=== PATIENT | female | born 1950 | race Caucasian/White ===

== ENCOUNTER → 2019-12-04 | Outpatient (CLI) | payer MEDICARE ==
--- NOTE | 2019-12-04 20:35 | MR ---
EXAMINATION TYPE: MR lumbar spine wo con DATE OF EXAM: 12/04/2019 COMPARISON: None HISTORY: Lumbago with sciatica, radiculopathy CONTRAST: 0 mL intravenous Gadavist. TECHNIQUE: Multiplanar, multisequence images of the lumbar spine were acquired. FINDINGS: L5-S1: Mild disc bulge is present with anterior thecal sac contact. No AP spinal canal stenosis prese nt. Moderate facet hypertrophy is present without significant posterior lateral thecal sac compressio n. There is moderate right and mild to moderate left foraminal narrowing. L4-L5: There is a grade 1 spondylolisthesis. Disc uncovering has moderate anterior thecal sac flatten ing. Facet hypertrophy has posterior lateral thecal sac contact. No AP spinal canal stenosis is prese nt. Severe bilateral foraminal stenosis is present. L3-L4: No significant disc bulge or disc herniation. No spinal canal stenosis. Mild foraminal narrow ing from moderate to severe facet hypertrophy is present.. L2-L3: No significant disc bulge or disc herniation. No spinal canal stenosis. No foraminal stenosi s. L1-L2: No significant disc bulge or disc herniation. No spinal canal stenosis. No foraminal stenosi s. T12-L1: No significant disc bulge or disc herniation. No spinal canal stenosis. No foraminal stenos is. IMPRESSION: 1. Grade 1 spondylolisthesis of L4 anterior and L5. 2. Disc uncovering L4-5 with mild to moderate anterior thecal sac flattening. 3. Severe foraminal stenosis bilaterally L4-5 due to facet hypertrophy with milder foraminal narrowin g discussed above from facet hypertrophy is at L3-4 and L5-S1
== END | disposition home or self-care (01) ==
LOC: RADMRIMAIN 11:11
PROVIDERS: ATTEND Physician Assistant
DX: M48.061 Spinal stenosis, lumbar region without neurogenic claudication (principal); M48.07 Spinal stenosis, lumbosacral region; M43.16 Spondylolisthesis, lumbar region
CPT/HCPCS: 72148

== ENCOUNTER → 2021-09-03 | Outpatient (CLI) | payer MEDICARE ==
--- NOTE | 2021-09-03 14:46 | BD ---
EXAMINATION TYPE: Axial Bone Density DATE OF EXAM: 09/03/2021 COMPARISON: NONE CLINICAL HISTORY: Height: 5 FT 2 IN Weight: 151 FRAX RISK QUESTIONS: Alcohol (3 or more units per day): NO Family History (Parent hip fracture): NO Glucocorticoids (More than 3mos): NO (Ex: prednisone, prednisolone, methylprednisolone, dexamethasone, and hydrocortisone). History of Fracture in Adulthood: NO Secondary Osteoporosis: 1. Type 1 Diabetes: NO 2. Hyperthyroidism: NO 3. Menopause before 45: NO 4. Malnutrition: NO 5. Chronic liver disease: NO Rheumatoid Arthritis: NO Current Tobacco Use: NO RISK FACTORS HISTORY OF: Surgery to Spine/Hip(right/left)/Wrist (right/left): NO Family History of Osteoporosis: NO Active: YES Diet low in dairy products/other sources of calcium: NO Postmenopausal woman: YES Take estrogen and/or progesterone medications: NO Lost more than 2 inches in height since high school: NO Poor Health: GOOD Hyperparathyroidism: NO Adrenal Insufficiency: NO MEDICATIONS: Additional Medications: VIT D3, BLOOD PRESSURE MEDS, MOBIC, CHOLESTEROL MEDS Additional History: EXAM MEASUREMENTS: Bone mineral densitometry was performed using the [employer] System. Bone mineral density as measured about the Lumbar spine is: ----- L1-L4(G/cm2): 1.041 T Score Values are as follows: ----- L2: -1.3 ----- L3: -2.0 ----- L4: -0.2 ----- L1-L4: -1.2 PREV DONE ELSEWHERE Bone mineral density about the R hip (g/cm2): 1.116 Bone mineral density about the L hip (g/cm2): 0.914 T Score values are as follows: -----R Neck: 0.6 -----L Neck: -0.9 -----R Total: -0.3 -----L Total: -0.8 PREV DONE ELSEWHERE IMPRESSION: Osteopenia lumbar spine NOTE: T-SCORE=SD OF THE YOUNG ADULT MEAN.
--- NOTE | 2021-09-04 12:03 | MM ---
Reason for exam: screening (asymptomatic). Last mammogram was performed 3 years and 1 month ago. History: Patient is postmenopausal. Took hormonal contraceptives for 2 years. Physical Findings: A clinical breast exam by your physician is recommended on an annual basis and results should be correlated with mammographic findings. MG 3D Screening Mammo W/Cad Bilateral CC and MLO view(s) were taken. Prior study comparison: July 22, 2018, mammogram, performed at [facility]. September 15, 2015, mammogram, performed at [facility]. There are scattered fibroglandular densities. There is no discrete abnormality. ASSESSMENT: Negative, BI-RAD 1 RECOMMENDATION: Routine screening mammogram in 1 year.
== END | disposition home or self-care (01) ==
LOC: RADBDWWP 08:24
PROVIDERS: ATTEND Family Medicine
DX: M85.88 Other specified disorders of bone density and structure, other site (principal)
CPT/HCPCS: 77063; 77067; 77080

== ENCOUNTER 2022-01-23 09:56 | Day surgery (SDC) | payer MEDICARE ==
[2022-01-21 09:45] VITALS: BMI 26.5
[2022-01-23 10:37] VITALS: TEMP 96.8
[2022-01-23] MEDS: LACTATED RINGERS 1,000 ML IV SCH ×2 (10:50→11:21)
[2022-01-23] MEDS ORDERED: PROPOFOL 10 MG/ML 20 ML VIAL IV ONE (11:23)
--- NOTE | 2022-01-23 11:41 | P.PCN ---
Date of Procedure: 01/23/22 Procedure(s) Performed: BRIEF HISTORY: Patient is a 71-year-old pleasant female scheduled for an elective colonoscopy as a part of screening for colorectal neoplasia and family history of colon cancer diagnosed in her mother at age 70. PROCEDURE PERFORMED: Colonoscopy. PREOPERATIVE DIAGNOSIS: Screening for colon Cancer and family history of colon cancer. IV sedation per Anesthesia. PROCEDURE: After informed consent was obtained, the patient, was brought into the endoscopy unit. IV sedation was administered by Anesthesia under continuous monitoring. Digital rectal examination was normal. Initially the Olympus CF-160 flexible video colonoscope was then inserted in the rectum, gradually advanced into the cecum without any difficulty. Careful examination was performed as the scope was gradually being withdrawn. Ileocecal valve and the appendiceal orifice were visualized and appeared normal. Prep was excellent. Mucosa of the cecum, ascending colon, transverse colon, descending colon, sigmoid colon, and rectum appeared normal. Scattered sigmoid diverticulosis. Retroflexion was performed in the rectum and grade 2 internal hemorrhoids were seen. The patient tolerated the procedure well. IMPRESSION: Normal-appearing colon from rectum to cecum no evidence of colorectal neoplasia Scattered sigmoid diverticulosis Grade 2 internal hemorrhoids. RECOMMENDATIONS: Findings of this examination were discussed with the patient as well as a family. She was advised to have a repeat colonoscopy in 5 years from now because of family history of colon cancer..
[2022-01-23 12:01] VITALS: BP 136/84; PULSE 68; RESP 20
== END 2022-01-23 12:47 | disposition home or self-care (01) ==
LOC: ORWHC2ENDO 09:56
PROVIDERS: ATTEND Internal Medicine Gastroenterology
DX: Z12.11 Encounter for screening for malignant neoplasm of colon (principal); K57.30 Diverticulosis of large intestine without perforation or abscess without bleeding; K64.1 Second degree hemorrhoids; Z80.0 Family history of malignant neoplasm of digestive organs; I10 Essential (primary) hypertension; M19.90 Unspecified osteoarthritis, unspecified site; F32.A Depression, unspecified; K21.9 Gastro-esophageal reflux disease without esophagitis; Z79.899 Other long term (current) drug therapy; Z79.1 Long term (current) use of non-steroidal anti-inflammatories (NSAID); Z88.5 Allergy status to narcotic agent
CPT/HCPCS: J2704; G0105

== ENCOUNTER → 2022-07-08 | Outpatient (CLI) | payer MEDICARE ==
[2022-07-08 10:55] LABS: Appearance,Urine Clear (Clear); Bilirubin,Urine Negative (Negative); Blood,Urine Trace (Negative); Color,Urine Light Yellow; Glucose,Urine (UA) Negative (Negative); Ketones,Urine Negative (Negative); Leukocyte Esterase,Urine Negative (Negative); Mucus,Urine Rare /hpf; Nitrite,Urine Negative (Negative); Protein,Urine Negative (Negative); RBC,Urine 1 /hpf (0-5); Specific Gravity,Urine 1.008 (1.001-1.035); Urobilinogen,Urine <2.0 mg/dL (<2.0); WBC,Urine 1 /hpf (0-5)
[2022-07-08 11:00] LABS: INR 0.9 (<1.2); Partial Thromboplastin Time 24.8 sec (22.0-30.0); Prothrombin Time 9.9 sec (9.0-12.0)
[2022-07-08 14:44] LABS: African American GFR (CKD) 76.6 (60.0-200.0); Albumin 4.8 g/dL (3.8-4.9); Albumin/Globulin Ratio 2.29 (1.60-3.17); Anion Gap 8.8 mmol/L (10.00-18.00); BUN/Creat Ratio 28.74 Ratio (12.00-20.00); Calcium 10.3 mg/dL (8.7-10.3); Carbon Dioxide 28.6 mmol/L (20.0-27.5); Globulin 2.1 g/dL (1.6-3.3); Non-African American GFR(CKD) 66.1 (60.0-200.0); Total Bilirubin 0.7 mg/dL (0.30-1.20); Total Protein 6.9 g/dL (6.2-8.2)
[2022-07-08 16:04] LABS: Basophils # (A) 0.05 X 10*3/uL (0.00-0.10); Eosinophils # (A) 0.24 X 10*3/uL (0.04-0.35); Eosinophils % (A) 4.7 %; HCT 40.6 % (37.2-46.3); HGB 13.6 g/dL (12.0-15.0); Immature Grans, Automated 0.2 %; Lymphocytes # (A) 1.04 X 10*3/uL (0.90-5.00); Lymphocytes % (A) 20.4 %; MCH 31.4 pg (27.0-32.0); MCHC 33.5 g/dL (32.0-37.0); MCV 93.8 fL (80.0-97.0); Mean Platelet Volume 11.1 fL (9.5-12.2); Monocytes # (A) 0.34 X 10*3/uL (0.20-1.00); Monocytes % (A) 6.7 %; NRBC Per 100 WBC 0 /100 WBCS (0.0-0.0); Neutrophils # (A) 3.43 X 10*3/uL (1.80-7.70); Platelet Count 247 X 10*3/uL (140-440); RBC 4.33 X 10*6/uL (4.10-5.20); RDW 12.5 % (11.5-14.5); WBC 5.11 X 10*3/uL (4.50-10.00)
== END | disposition home or self-care (01) ==
LOC: LABPAT 09:40
PROVIDERS: ATTEND Orthopaedic Surgery
DX: Z01.812 Encounter for preprocedural laboratory examination (principal); M17.11 Unilateral primary osteoarthritis, right knee
CPT/HCPCS: 80053; 81001; 85025; 85610; 85730; 87070; 93005

== ENCOUNTER 2022-07-16 05:37 | Observation (INO) | payer MEDICARE ==
[~2022-07-16 05:37] MED LIST: ACETAMINOPHEN TAB 500 MG TAB PO PRN; GABAPENTIN 300 MG CAP PO PRN; MELOXICAM 7.5 MG TAB PO PRN; TRANEXAMIC ACID IN NACL,ISO-OS 1,000 MG in SALINE 1 100ML.BAG IVPB PRN
[2022-07-16] MEDS ORDERED: ONDANSETRON 4 MG/2 ML VIAL IVP ONE (05:44)
[2022-07-16] MEDS ORDERED: DEXAMETHASONE SOD PHOSPHATE 4 MG/ML 1 ML VIAL IV ONE (05:44)
[2022-07-16] MEDS: LACTATED RINGERS 1,000 ML IV SCH (06:20)
[2022-07-16] MEDS ORDERED: ceFAZolin 1,000 MG in SODIUM CHLORIDE 0.9% 1,000 ML IRRIGATION ONE (06:59)
[2022-07-16] MEDS ORDERED: HYDROmorphone 0.5 MG/0.5 ML SYRINGE IVP PRN ×3 (07:00→08:31)
[2022-07-16] MEDS ORDERED: ROPIVACAINE 5 MG/ML 30 ML VIAL MISCELLANE ONE ×2 (07:24→07:58)
--- NOTE | 2022-07-16 08:09 | P.OP ---
Date of Procedure: 07/16/22 Preoperative Diagnosis: Severe osteoarthritis right hip Postoperative Diagnosis: Severe osteoarthritis right hip Procedure(s) Performed: Right total hip arthroplasty for direct anterior approach Implants: [employer] Polarstem standard size 1 [employer] R3, 3 hole hemispherical acetabular shell, 48 mm [employer] Reflection 6.5 mm cancellus screw, 20 mm 2 [employer] R3, XLPE 20 acetabular liner [employer]hew Oxinium femoral head 32 m, +0 All components were press-fit. The articulation is Oxinium on polyethylene. Anesthesia: spinal Surgeon: Curt Perry Safety Fire Boss #1: Ana Cristina Thomas Estimated Blood Loss (ml): 250 Pathology: other (Femoral head) Condition: stable Disposition: PACU Indications for Procedure: After failure of conservative treatment we discussed the surgical and nonsurgical treatment options at length. Patient wishes to proceed with a total hip arthroplasty with a direct anterior approach. Complications specific to this procedure were discussed at length, including but not limited to infection, leg length discrepancy, dislocation, nerve injury, and fracture. Covid-19 was also discussed at length with the patient, and they are aware of the current policies and procedures. The patient was given the option of delaying surgery, but they elect to proceed knowing these risks. Patient is aware of all these complications and informed consent was obtained Operative Findings: The operative findings are consistent with severe osteoarthritis of the right hip Description of Procedure: Patient was seen and evaluated in the preoperative area and the consent was reviewed. The operative site was marked with a skin marker. The patient was then brought to the operating room and given preoperative antibiotics i ntravenously. 1 g of Tranexamic acid was also given intravenously. A spinal anesthetic was administered by the anesthesia department. The patient was then placed on the Kenton table with the bony prominences well-padded. The hip area was then prepped with a ChloraPrep solution and draped in the usual sterile fashion. A universal timeout was then performed, which confirmed the patient's name, s urgical site, ALLERGIES, and procedure being performed on the consent. Next the incision site was located at 1 cm distal and 2 cm lateral to the anterior superior iliac spine. The skin and subcutaneous tissues were sharply incised. Incision was carefully dissected down to the fascia overlying the tensor fascia tika muscle. This fascia was then incised in line with the incision. Care was taken to stay laterally in order to avoid injuring the lateral femoral cutaneous nerve. Next, using blunt finger dissection, the tensor fascia tika muscle was dissected off its investing fascia. The muscle was then carefully retracted laterally with a cobra retractor over the lateral neck of the femur. Next, the circumflex vessels were identified and cauterized using the AquaMantis device. The anterior hip capsule was then exposed. The capsule was then opened and an inverted T fashion. Cobra retractors were then placed intracapsularly. The retractors were maintained intracapsular throughout the procedure. The proximal femur was then visualized. Fluoroscopic x-rays were then taken in order to evaluate the preoperative leg lengths. A small amount of traction was placed on the leg. The femoral neck was then osteotomized at the appropriate level above the lesser trochanter. A small wedge of bone was then removed from the remaining femoral head. Next, using a corkscrew the femoral head was removed from the acetabulum. On gross visual inspection, the femoral head had complete loss of articular cartilage and multiple periarticular osteophytes. The femoral head was then measured. Attention was then turned to the acetabulum. The acetabulum was exposed and any remaining labrum was excised. Sequential reaming of the acetabulum was performed using fluoroscopic guidance until there was a good bed of bleeding cancellus bone. When the appropriate size was reached, a trial was then placed. The position and fit of the trial was checked with fluoroscopy. The trial was then removed. Then, using fluoroscopic guidance, the final implant was impacted at 20 of anteversion and 40 of abduction, and fully seated in the acetabulum. 2 screws were then placed in the acetabulum. Again fluoroscopy was used to check position of the screws. Next, the liner was then impacted, with a 20 elevated liner located in the anterior superior quadrant. Component locking was confirmed. Attention was then directed to the femur. With the aid of the Kenton table, the femur was externally rotated to approximately 130, extended, and adducted under the opposite leg. A side hook was then placed under the proximal femur, and the side hook elevator was used to elevate the proximal femur while releasing the capsule. Retractors were then placed. A capsular release was performed, as wel l as a release of the conjoined tendon, which afforded excellent visualization of the proximal femur. Next, a box osteotome was used to lateralize the proximal femur. A hand welt butter was then used to locate the femoral canal. Sequential broaching was then performed with appropriate size which afforded excellent fixation in the proximal femur. A trial was then placed with appropriate head and neck, and the hip was gently reduced with the aid of the Kenton table. Fluoroscopy was then used to check position of the components, as well as to evaluate the leg lengths and offset. The leg lengths and offset were measured as closely as possible to ensure stability of the hip. The hip was then gently dislocated and the trials were then removed. Final implants were then impacted and the hip was again reduced. Final fluoroscopic x-rays confirmed that the components were in anatomic position. The leg lengths and offset were measured and were found to coincide with the trial measurements. The hip was also taken through range of motion, and found to be stable. The hip was then copiously irrigated with antibiotic solution with pulsatile lavage. The hip was then irrigated with Irrisept solution. The soft tissues were then injected with a ropivacaine solution. A second dose of 1 g of Tranexamic acid was also given intravenously. The fascia was then closed with 2-0 strata fix suture. The subcutaneous tissue was closed with 3-0 Vicryl. The subcuticular tissue was closed with 3-0 strata fix suture. The skin was then closed with Exofin skin glue. After the glue and dried, and Optifoam silver impregnated dressing was applied. The patient was then transferred to the recovery room in stable condition. The senior administrative assistant CHRISTINE Amos was required due to the complexity of surgery, and the need for skilled neurosurgical physician assistant for positioning, draping, exposure, retraction, and closure of the wound.
[2022-07-16] MEDS ORDERED: MAGNESIUM HYDROXIDE 2,400 MG/10 ML CUP PO PRN (08:31)
[2022-07-16] MEDS ORDERED: NALOXONE 0.4 MG/ML 1 ML VIAL IV PRN (08:31)
[2022-07-16] MEDS ORDERED: ONDANSETRON 4 MG/2 ML VIAL IVP PRN (08:31)
[2022-07-16] MEDS ORDERED: HYDROcodone/APAP 7.5-325MG 1 EACH TAB PO PRN (08:34)
--- NOTE | 2022-07-16 08:35 | FL ---
EXAMINATION TYPE: FL guidance operating room, XR Hip Limited RT DATE OF EXAM: 07/16/2022 COMPARISON: NONE HISTORY: 71-year-old female right anterior hip replacement FINDINGS: Intraoperative fluoroscopy during placement of right hip total arthroplasty. FLUOROSCOPY Fluoroscopy time of 39 seconds was used during anterior right hip replacement. 4 image/s document/s the procedure. IMPRESSION: Intraoperative fluoroscopy as above.
--- NOTE | 2022-07-16 08:52 | XR ---
EXAMINATION TYPE: XR Hip Limited RT DATE OF EXAM: 07/16/2022 Comparison: None Clinical History: 71-year-old female Status post hip surgery, assess surgical alignment Findings: Image shows placement of right hip total arthroplasty. Acetabular cup and femoral stem components of the prosthesis are well seated without periprosthetic fracture. Alignment grossly anatomic. Scattered soft tissue air related to recent operation. Impression: Uncomplicated postoperative appearance right hip total arthroplasty.
[2022-07-16] MEDS: ASPIRIN 325 MG TAB PO SCH ×2 (13:53→21:01)
[2022-07-16] MEDS: SODIUM CHLORIDE 0.9% 1,000 ML IV SCH (13:55)
[2022-07-16] MEDS: HYDROmorphone 0.5 MG/0.5 ML SYRINGE IVP PRN ×3 (13:55→22:10)
--- NOTE | 2022-07-16 17:41 | P.CONS ---
History of Present Illness - Reason for Consult Consult date: 07/16/22 HTN Requesting physician: Curt Perry - Chief Complaint hip pain - History of Present Illness Patient is a 71-year-old female with hypertension, dyslipidemia, and os teoarthritis who presented for elective right direct anterior hip replacement. She did well and had no immediate postoperative complications. Patient seen and examined at bedside. Pain is well controlled. She had some dizziness earlier but that has resolved. She denies any chest pain, shortness of breath, nausea, lightheadedness, or grogginess. She states she has been unable to walk well at home, has been unable to sleep secondary to the pain, and has been having to use a cane. Pertinent positives and negatives as discussed in HPI, a complete review of systems was performed and all other systems are negative. Vital signs reviewed General: nontoxic, no distress, appears at stated age Derm: warm, dry Head: atraumatic, normocephalic, symmetric Eyes: EOMI, no lid lag, anicteric sclera ENT: Nose and ears atraumatic Mouth: no lip lesion, mucus membranes moist Cardiovascular: S1S2 reg, no murmur, positive posterior tibial pulse bilateral, no edema Lungs: clear to auscultation bilateral, no rhonchi, no rales, no wheeze, no accessory muscle use Abdominal: soft, nontender to palpation, no guarding, no appreciable organomegaly, normal bowel sounds Ext: no gross muscle atrophy, muscle strength equal in bilateral upper extremities, no contractures Neuro: CN II-XII grossly intact, no focal neuro deficits Psych: Alert, oriented, appropriate affect Assessment/Plan: 71-year-old female status post right total hip arthroplasty Hypertension -controlled -Resume home blood pressure medications Dyslipidemia -Lipitor Thank you for allowing us to participate in the care of this pleasant patient. Do not hesitate to contact us with questions. Someone can be reached from the [facility] hospitalist group all hours of the day at [phone] or via [employer]. Past Medical History Past Medical History: GERD/Reflux, Hyperlipidemia, Hypertension, Osteoarthritis (OA) History of Any Multi-Drug Resistant Organisms: None Reported Past Surgical History: Joint Replacement Additional Past Surgical History / Comment(s): total left knee, colonoscopies, anterior right hip replacement 07/16/22 Past Anesthesia/Blood Transfusion Reactions: No Reported Reaction Past Psychological History: Depression Smoking Status: Never smoker Past Alcohol Use History: None Reported Additional Past Alcohol Use History / Comment(s): smoked as teen Past Drug Use History: None Reported - Past Family History Mother Family Medical History: Cancer Additional Family Medical History / Comment(s): colon cancer Father Family Medical History: Cancer Additional Family Medical History / Comment(s): throat cancer Medications and Allergies Home Medications Medication Instructions Recorded Confirmed Type Atorvastatin [Lipitor] 10 mg PO DAILY 01/21/22 07/16/22 History Benazepril/Hydrochlorothiazide 1 each PO DAILY 01/21/22 07/16/22 History [Benazepril-Hctz 10-12.5 mg Tab] Citalopram Hydrobromide [CeleXA] 20 mg PO DAILY 01/21/22 07/16/22 History Ergocalciferol [Vitamin D2 (1250 50,000 unit PO Q14D 01/21/22 07/16/22 History Mcg = 12189 Iu)] Meloxicam [Mobic] 7.5 mg PO BID PRN 01/21/22 07/16/22 History traMADol HCL 50 mg PO Q6H PRN 07/12/22 07/16/22 History valACYclovir HCL [Valacyclovir] 500 mg PO DIRECTED PRN 07/12/22 07/16/22 History Aspirin 325 mg PO BID #60 tab 07/16/22 Rx HYDROcodone/APAP 7.5-325MG [[place] 1 - 2 tab PO Q6H PRN #32 tab 07/16/22 Rx 7.5-325] Sennosides [Senokot] 2 tab PO DAILY PRN #60 tablet 07/16/22 Rx Allergies Allergy/AdvReac Type Severity Reaction Status Date / Time codeine Allergy Unknown Rash/Hives, Verified 07/16/22 06:08 Itching Physical Exam Osteopathic Statement: *. No significant issues noted on an osteopathic structural exam other than those noted in the History and Physical/Consult. Vitals: Vital Signs Temp Pulse Resp BP Pulse Ox 07/16/22 14:18 97.4 F L 80 18 128/82 96 07/16/22 13:30 97.4 F L 75 18 132/74 95 07/16/22 12:39 97.4 F L 75 18 132/74 95 07/16/22 12:01 70 16 138/70 94 L 07/16/22 11:30 71 16 138/65 96 07/16/22 11:00 70 16 140/67 95 07/16/22 10:30 70 16 135/68 95 07/16/22 09:54 65 16 123/60 95 07/16/22 09:30 65 16 122/61 97 07/16/22 09:15 63 16 117/53 99 07/16/22 09:00 64 16 118/57 99 07/16/22 08:45 61 16 106/53 99 07/16/22 08:30 63 16 94/53 99 07/16/22 08:19 97.4 F L 72 14 91/50 99 07/16/22 06:20 97.4 F L 84 16 152/68 98 Intake and Output 07/16/22 07/16/22 07/16/22 06:59 14:59 22:59 Intake Total 851 720 Output Total 250 Balance 851 470 Intake: IV 851 200 Intake, IV Titration 520 Amount Sodium Chloride 0.9% 1, 520 000 ml @ 65 mls/hr IV . [id number] [facility] Rx#:[id number] Output: Estimated Blood Loss 250 Other: Weight 67.8 kg 67.8 kg
[2022-07-16] MEDS: HYDROcodone/APAP 7.5-325MG 1 EACH TAB PO PRN (19:38)
[2022-07-16] MEDS ORDERED: SENNOSIDES-DOCUSATE SODIUM 1 EACH TAB PO SCH (21:00)
[2022-07-17] MEDS: SODIUM CHLORIDE 0.9% 1,000 ML IV SCH ×2 (01:22→03:01)
[2022-07-17] MEDS: HYDROcodone/APAP 7.5-325MG 1 EACH TAB PO PRN ×2 (01:26→09:00)
[2022-07-17] MEDS: HYDROmorphone 0.5 MG/0.5 ML SYRINGE IVP PRN (03:02)
[2022-07-17] MEDS: LACTATED RINGERS 1,000 ML IV SCH (05:39)
--- NOTE | 2022-07-17 08:21 | P.DS ---
Providers Expected date of discharge: 07/17/22 Attending physician: Curt Perry Consults: 07/16/22 08:31 Consult Physician Routine Consulting Provider: Senia Madsen Consult Reason/Comments: medical management Do you want consulting provider notified?: Yes Primary care physician: Curt Paniagua - Discharge Diagnosis(es) (1) Primary localized osteoarthritis of right hip Current Visit: Yes Status: Acute (2) Status post total replacement of right hip Current Visit: Yes Status: Acute Hospital Course: This is a 71-year-old female with known history of degenerative arthritis of the right hip. The patient presents for evaluation. After discussion and consideration patient elects to proceed with total hip arthroplasty with direct anterior approach. The patient is seen preoperatively by primary care physician and cleared for surgery. Patient is admitted to [facility] on 07/16/2022 for total hip arthroplasty with direct anterior approach. The procedure is performed without complication or sequelae. The patient is doing well postoperatively. Labs and vital signs are stable on day of discharge. On day of discharge patient's hip incision is healing well. There is minimal erythema. There is no drainage noted at this time. There is minimal soft tissue swelling to the hip and thigh. Patient has full foot and ankle motion without difficulty or pain. Neurovascular status to the lower extremity is intact. Patient is discharged to home in good condition. Please see med rec for accurate list of home medications. Patient Condition at Discharge: Good Plan - Discharge Summary Discharge Rx Participant: Yes New Discharge Prescriptions: New Aspirin 325 mg PO BID #60 tab Sennosides [Senokot] 2 tab PO DAILY PRN #60 tablet PRN Reason: Constipation HYDROcodone/APAP 7.5-325MG [[place] 7.5-325] 1 - 2 tab PO Q6H PRN #32 tab PRN Reason: Pain No Action Ergocalciferol [Vitamin D2 (1250 Mcg = 82900 Iu)] 50,000 unit PO Q14D Citalopram Hydrobromide [CeleXA] 20 mg PO DAILY Benazepril/Hydrochlorothiazide [Benazepril-Hctz 10-12.5 mg Tab] 1 each PO DAILY valACYclovir HCL [Valacyclovir] 500 mg PO DIRECTED PRN PRN Reason: Cold Sores Atorvastatin [Lipitor] 10 mg PO DAILY Meloxicam [Mobic] 7.5 mg PO BID PRN PRN Reason: Pain traMADol HCL 50 mg PO Q6H PRN PRN Reason: Pain Discharge Medication List Atorvastatin [Lipitor] 10 mg PO DAILY 01/21/22 [History] Benazepril/Hydrochlorothiazide [Benazepril-Hctz 10-12.5 mg Tab] 1 each PO DAILY 01/21/22 [History] Citalopram Hydrobromide [CeleXA] 20 mg PO DAILY 01/21/22 [History] Ergocalciferol [Vitamin D2 (1250 Mcg = 92046 Iu)] 50,000 unit PO Q14D 01/21/22 [History] Meloxicam [Mobic] 7.5 mg PO BID PRN 01/21/22 [History] traMADol HCL 50 mg PO Q6H PRN 07/12/22 [History] valACYclovir HCL [Valacyclovir] 500 mg PO DIRECTED PRN 07/12/22 [History] Aspirin 325 mg PO BID #60 tab 07/16/22 [Rx] HYDROcodone/APAP 7.5-325MG [[place] 7.5-325] 1 - 2 tab PO Q6H PRN #32 tab 07/16/22 [Rx] Sennosides [Senokot] 2 tab PO DAILY PRN #60 tablet 07/16/22 [Rx] Follow up Appointment(s)/Referral(s): Curt Perry DO [Doctor of Osteopathic Medicine] - 2 Weeks Activity/Diet/Wound Care/Special Instructions: Weightbearing as tolerated with walker. Leave dressing intact. Dressing may be removed by home care nurse or by patient in 7 days. Then change dressing twice daily until follow up. May shower with initial dressing intact and after removal. If dressing become saturated, please remove. Please take aspirin 325mg twice daily for 30 days to prevent blood clots. Recommend use of compression stockings daily until follow up to help prevent swelling and blood clots. May remove at night before sleeping. Please follow-up with [facility] in 2 weeks and call with any questions or concerns, . Discharge Disposition: HOME WITH HOME HEALTH SERVICES
[2022-07-17] MEDS ORDERED: hydroCHLOROthiazide 12.5 MG CAP PO SCH (09:00)
[2022-07-17] MEDS ORDERED: CITALOPRAM HYDROBROMIDE 20 MG TAB PO SCH (09:00)
[2022-07-17] MEDS ORDERED: ATORVASTATIN 10 MG TAB PO SCH (09:00)
[2022-07-17] MEDS ORDERED: lisinopriL 10 MG TAB PO SCH (09:00)
[2022-07-17] MEDS: ASPIRIN 325 MG TAB PO SCH (09:01)
[2022-07-17 10:44] LABS: Basophils # (A) 0.03 X 10*3/uL (0.00-0.10); Basophils % (A) 0.4 %; Eosinophils # (A) 0.05 X 10*3/uL (0.04-0.35); Eosinophils % (A) 0.7 %; HCT 30.7 % (37.2-46.3); HGB 10.2 g/dL (12.0-15.0); Immature Grans, Automated 0.3 %; Lymphocytes # (A) 1.59 X 10*3/uL (0.90-5.00); MCHC 33.2 g/dL (32.0-37.0); MCV 93.3 fL (80.0-97.0); Mean Platelet Volume 11.1 fL (9.5-12.2); Monocytes # (A) 0.68 X 10*3/uL (0.20-1.00); Monocytes % (A) 9.8 %; NRBC Per 100 WBC 0 /100 WBCS (0.0-0.0); Neutrophils # (A) 4.54 X 10*3/uL (1.80-7.70); Neutrophils % (A) 65.8 %; Platelet Count 194 X 10*3/uL (140-440); RBC 3.29 X 10*6/uL (4.10-5.20); RDW 12.6 % (11.5-14.5); WBC 6.91 X 10*3/uL (4.50-10.00)
[2022-07-17] MEDS ORDERED: diphenhydrAMINE 25 MG CAP PO PRN (11:48)
[2022-07-17] MEDS ORDERED: traMADol 50 MG TAB PO PRN ×2 (12:07)
[2022-07-17 15:06] VITALS: BP 111/64; PULSE 83; RESP 14; TEMP 97.7
--- NOTE | 2022-07-17 17:44 | P.PN ---
Subjective Progress Note Date: 07/17/22 (delayed hcarting seen at approx 1130) Patient is a 71-year-old female status post right total hip arthroplasty. Patient seen and examined at bedside. She believes she is having ALLERGIC r eaction to hydrocodone. She felt very off balance and almost as though she would pass out. Now she is having mild itching. She does have a history of a codeine ALLERGY with hives in the past. She has tolerated tramadol. Nursing has already reached out to orthopedics who will prescribe tramadol for discharge. General: nontoxic, no distress, appears at stated age Derm: warm, dry Head: atraumatic, normocephalic, symmetric Eyes: EOMI, no lid lag, anicteric sclera Mouth: no lip lesion, mucus membranes moist Cardiovascular: S1S2 reg, no murmur, positive posterior tibial pulse bilateral, Lungs: CTA bilateral, no rhonchi, no rales , no accessory muscle use Ext: no gross muscle atrophy, 1+ edema right lower extremity, no contractures Neuro: CN II-XI grossly intact, no focal neuro deficits Psych: Alert, oriented, appropriate affect Assessment/Plan: 71-year-old female status post right total hip arthroplasty Hypertension -controlled -Resume home blood pressure medications Dyslipidemia -Lipitor Medically optimized for discharge. Home med rec addressed. Objective - Vital Signs Vital signs: Vital Signs Temp 97.7 F 07/17/22 14:00 Pulse 83 07/17/22 14:00 Resp 14 07/17/22 14:00 BP 111/64 07/17/22 14:00 Pulse Ox 99 07/17/22 14:00 FiO2 Intake & Output 07/16/22 07/17/22 07/17/22 18:59 06:59 18:59 Intake Total 720 1310 145 Output Total 250 Balance 470 1310 145 Weight 67.8 kg Intake: IV 200 Intake, IV Titration 520 830 145 Amount Sodium Chloride 0.9% 1, 520 780 145 000 ml @ 65 mls/hr IV . [id number] KEN Rx#:[id number] ceFAZolin 2 gm In Sodium 50 Chloride 0.9% 50 ml @ 100 mls/hr IVPB Q8H KEN Rx#: [id number] Oral 480 Output: Estimated Blood Loss 250 Other: # Voids 1 - Labs CBC & Chem 7: 07/17/22 07:24 Labs: Abnormal Lab Results - Last 24 Hours (Table) 07/17/22 Range/Units 07:24 RBC 3.29 L (4.10-5.20) X 10*6/uL Hgb 10.2 L (12.0-15.0) g/dL Hct 30.7 L (37.2-46.3) %
== END 2022-07-17 16:08 | disposition home health service (06) ==
LOC: OR 05:37 → 4SSUR 11:57 → OR 07-17 07:51
PROVIDERS: ADMIT Orthopaedic Surgery; ATTEND Orthopaedic Surgery
DX: M16.11 Unilateral primary osteoarthritis, right hip (principal); I10 Essential (primary) hypertension; E78.5 Hyperlipidemia, unspecified; K21.9 Gastro-esophageal reflux disease without esophagitis; F32.A Depression, unspecified; Z80.0 Family history of malignant neoplasm of digestive organs; Z80.8 Family history of malignant neoplasm of other organs or systems; Z87.891 Personal history of nicotine dependence; Z79.899 Other long term (current) drug therapy; Z79.1 Long term (current) use of non-steroidal anti-inflammatories (NSAID); Z79.82 Long term (current) use of aspirin; Z88.5 Allergy status to narcotic agent
CPT/HCPCS: 97116; 97530; 97162; 97535; 97166; 86900; 86901; 85025; 86850; 88300; 73501; 27130; G0378; C1776; J1100; J0690 ×2; J2405; J2795; J1170 ×2